=== PATIENT | male | born 1955 | race Two or more races ===

== ENCOUNTER 2023-12-28 13:41 | Emergency (ER) | payer MEDICARE ==
[~2023-12-28] VITALS: Ht 167.6 cm; Wt 68.2 kg
[2023-12-28 13:54] VITALS: BP 136/61; PULSE 93; RESP 18; TEMP 98.3
[2023-12-28] MEDS ORDERED: HYDROCODONE/ACETAMINOPHEN 5-325 MG TABLET PO ONE (16:00)
[2023-12-28] MEDS ORDERED: SODIUM CHLORIDE 0.9% 250 ML IRRIG SOLUTION BOTTLE IRRIG ONE (16:00)
[2023-12-28] MEDS ORDERED: LIDOCAINE 1% 10 ML VIAL ID ONE (16:00)
[2023-12-28] MEDS ORDERED: PERTUSS(ACELL),DIPH,TET/PF 0.5 ML SYRINGE [ADULT] IM. ONE (16:00)
== END 2023-12-28 18:00 | disposition home or self-care (01) ==
LOC: EMS 13:42
DX: S01.01XA Laceration without foreign body of scalp, initial encounter (principal); I10 Essential (primary) hypertension; J45.909 Unspecified asthma, uncomplicated; X58.XXXA Exposure to other specified factors, initial encounter; Y93.89 Activity, other specified; Y92.89 Other specified places as the place of occurrence of the external cause; Y99.8 Other external cause status
CPT/HCPCS: 99284; 70450; 72125; 90715; 12004; J3490